=== PATIENT | female | born 1940 | race Caucasian/White ===

== ENCOUNTER 2020-07-09 08:12 | Outpatient (CLI) | payer OTHER | END 2020-07-09 08:24 | disposition home or self-care (01) | LOC: RAD 08:12 | PROVIDERS: ATTEND Orthopaedic Surgery | DX: M17.0 Bilateral primary osteoarthritis of knee (principal); M25.551 Pain in right hip; M25.552 Pain in left hip ==

== ENCOUNTER 2020-12-16 08:00 | Outpatient (CLI) | payer OTHER | END 2020-12-16 08:30 | disposition home or self-care (01) | LOC: PPH VACUNA 08:00 | DX: Z23 Encounter for immunization (principal) ==